=== PATIENT | female | born 1960 | race Caucasian/White ===

== ENCOUNTER 2016-12-05 20:20 | Emergency (ER) | payer OTHER ==
[2016-12-05] MEDS ORDERED: AMOX TR/POT CLAV 875MG/125MG TABLETS (FP) PO ONE (20:23)
--- NOTE | 2016-12-05 20:23 | PDOC ---
History of Present Illness - History of Present Illness Initial Comments: 12/05/16 20:23 Patient is a 56 year old female with no significant medical hx who is presenting to the ED after being bitten by a cat. Today the patient was bitten by a cat at the [facility] she [facility]. She was bitten on the index and third fingers of her left hand. She complains of throbbing pain and swelling to those fingers. The patient's last tetanus shot is unknown. <Coco Merino - Last Filed: 12/05/16 20:23> <Chang Bravo - Last Filed: 12/06/16 05:48> - General Chief Complaint: Bite Stated Complaint: CAT BITE TO LEFT FINGERS (L2-L3 FINGERS) Time Seen by Provider: 12/05/16 20:23 Past History <Coco Merino - Last Filed: 12/05/16 20:23> <Cahng Bravo - Last Filed: 12/06/16 05:48> - Past Medical History Allergies/Adverse Reactions: Allergies Allergy/AdvReac Type Severity Reaction Status Date / Time No Known Allergies Allergy Verified 12/05/16 20:22 Home Medications: Ambulatory Orders Amoxicillin/Potassium Clav [Augmentin 875-125 Tablet] 1 each PO BID #14 tablet 12/05/16 Review of Systems - Review of Systems Comments:: 12/05/16 20:25 CONSTITUTIONAL: Absent: fever, chills, diaphoresis, generalized weakness, malaise, loss of appetite HEENT: Absent: rhinorrhea, nasal congestion, throat pain, throat swelling, difficulty swallowing, mouth swelling, ear pain, eye pain, visual changes CARDIOVASCULAR: Absent: chest pain, syncope, palpitations, irregular heart rate, lightheadedness , peripheral edema RESPIRATORY: Absent: cough, shortness of breath, dyspnea with exertion, orthopnea, wheezing, stridor, hemoptysis GASTROINTESTINAL: Absent: abdominal pain, abdominal distension, nausea, vomiting, diarrhea, constipation, melena, hematochezia GENITOURINARY: Absent: dysuria, frequency, urgency, hesitancy, hematuria, flank pain, genital pain MUSCULOSKELETAL: Absent: myalgia, arthralgia, joint swelling SKIN: Present: cat bites to the index and third finger of the left hand Absent: rash, itching, pallor HEMATOLOGIC/IMMUNOLOGIC: Absent: easy bleeding, easy bruising, lymphadenopathy, frequent infections ENDOCRINE: Absent: unexplained weight gain, unexplained weight loss, heat intolerance, cold intolerance NEUROLOGIC: Absent: headache, focal weakness or paresthesia, dizziness, unsteady gait, seizure, mental status changes, bladder or bowel incontinence. PSYCHIATRIC: Absent: anxiety, depression, suicidal or homicidal ideation, hallucinations <Coco Merino - Last Filed: 12/05/16 20:23> *Physical Exam - Physical Exam Comments: 12/05/16 20:26 GENERAL: Well-appearing, well-nourished. No apparent distress. HEENT: Normocephalic, atraumatic. PERRL, EOM intact. CARDIOVASCULAR: Normal S1, S2. Regular rate and rhythm. PULMONARY: Clear to auscultation bilaterally. ABDOMEN: Soft, non-distended, non-tender. LEFT HAND: Punctum on volar aspect middle finger distal phalanx, slight swelling on second finger proximal phalanx. EXTREMITIES: Normal ROM in all four extremities. No gross deformities. SKIN: Warm, dry. No rash NEUROLOGICAL: No focal neurological deficits. <Coco Merino - Last Filed: 12/05/16 20:23> Medical Decision Making - Medical Decision Making 12/06/16 05:47 cat bite abx prophylaxis tetanus <Chang Bravo - Last Filed: 12/06/16 05:48> *DC/Admit/Observation/Transfer - Attestations Scribe Attestion: 12/05/16 20:27 Documentation prepared by Coco Merino, acting as medical records administrator for Chang Bravo MD. <Coco Merino - Last Filed: 12/05/16 20:23> <Chang Bravo - Last Filed: 12/06/16 05:48> Diagnosis at time of Disposition: Cat bite Qualifiers: Encounter type: initial encounter Qualified Code(s): W55.01XA - Bitten by cat, initial encounter - Discharge Dispostion Disposition: HOME Condition at time of disposition: Stable - Prescriptions Prescriptions: Amoxicillin/Potassium Clav [Augmentin 875-125 Tablet] 1 each PO BID #14 tablet - Patient Instructions Printed Discharge Instructions: DI for Animal Bites
[2016-12-05 20:25] VITALS: BP 140/90; PULSE 89; TEMP 98.3; BMI 20.9
[2016-12-05] MEDS ORDERED: DIPHTH,PERTUSS(ACELL),TET 0.5 ML DISP.SYRIN IM ONE (20:48)
== END 2016-12-05 20:50 | disposition home or self-care (01) ==
LOC: FER 20:20
PROC: 3E0234Z Introduction of Serum, Toxoid and Vaccine into Muscle, Percutaneous Approach (ICD-10-PCS; principal; 2016-12-05)
DX: S61.251A Open bite of left index finger without damage to nail, initial encounter (principal); S61.253A Open bite of left middle finger without damage to nail, initial encounter; W55.01XA Bitten by cat, initial encounter; Y93.K9 Activity, other involving animal care; Y92.89 Other specified places as the place of occurrence of the external cause; Y99.2 Volunteer activity
CPT/HCPCS: 90715; 99283-25